=== PATIENT | female | born 1970 | race Caucasian/White ===

== ENCOUNTER 2017-01-17 08:28 | Day surgery (SDC) | payer BC ==
[2017-01-17] MEDS ORDERED: Midazolam 2 MG/2 ML VIAL ONE (10:20)
[2017-01-17] MEDS ORDERED: Propofol 10 mg/ml Inj (20 ML) ONE (10:20)
[2017-01-17] MEDS ORDERED: Lidocaine Hydrochloride 5 ML INJ ONE (10:23)
[2017-01-17] MEDS ORDERED: Doxycycline 100 mg Inj ONE (10:25)
--- NOTE | 2017-01-17 11:07 | PCM.SURG1 ---
Surgeon's Initial Post Op Note - Surgeon's Notes Surgeon: Dr. Shara Ortiz Mail Caller: none Type of Anesthesia: General LMA Pre-Operative Diagnosis: Fibroid uterus, possible endometrial polyps, irregular menses, pelvic pain Operative Findings: Enlarged uterus approximately 14 week sized, anteverted, adherent to anterior abdominal wall. No polyps visualized, small posterior wall submucosal fibroid. right ostia not visualized. Post-Operative Diagnosis: fibroid uterus Operation Performed: hysteroscopy, D&C with MyoSure Specimen/Specimens Removed: endometrial curettings, submucosal fibroid Estimated Blood Loss: EBL {In ML}: 5 Blood Products Given: N/A Drains Used: No Drains Post-Op Condition: Good Date of Surgery/Procedure: 01/17/17 Time of Surgery/Procedure: 10:45
--- NOTE | 2017-01-17 11:15 | CP.PCM.DIS ---
Provider - Provider Date of Admission: 01/17/17 Attending physician: Shara Ortiz Time Spent in preparation of Discharge (in minutes): 15 Hospital Course - Hospital Course Hospital Course: Patient underwent hysteroscopy D&C with myosure and tolerated the procedure well. She was discharged home in stable condition after ambulating, voiding, tolerating regular diet. - Date & Time of H&P Date of H&P: 01/17/17 Time of H&P: 09:50 Discharge Exam - GI/Abdominal Exam GI & Abdominal Exam: Unremarkable - Neurological Exam Neurological exam: Alert, Normal Gait, Oriented x3 - Psychiatric Exam Psychiatric exam: Normal Affect, Normal Mood Discharge Plan - Follow Up Plan Condition: GOOD Disposition: DISCHARGED TO HOME CARE
[2017-01-17] MEDS ORDERED: Lactated Ringer's 1,000 ML IV ONE (11:18)
[2017-01-17] MEDS ORDERED: HYDROmorphone 0.5 mg/0.5 ml ISec IVP PRN (11:20)
[2017-01-17] MEDS ORDERED: HYDROmorphone 0.5 mg/0.5 ml ISec ONE (11:28)
[2017-01-17 13:36] VITALS: RESP 16
[2017-01-17 14:05] VITALS: BP 120/62; PULSE 60; TEMP 97.1; O2SAT 100
--- NOTE | 2017-01-17 21:29 | OP ---
PROCEDURE DATE: 01/17/2017 PREOPERATIVE DIAGNOSES: Fibroid uterus, possible endometrial polyps, irregular menses, and pelvic pain. POSTOPERATIVE DIAGNOSIS: Enlarged fibroid uterus. INTRAOPERATIVE FINDINGS: Enlarged uterus approximately 14 weeks' size, anteverted, adherent to anterior abdominal wall, no polyp visualized, small posterior wall submucosal fibroid, right ostia could not be visualized due to scar tissue. PROCEDURE: Hysteroscopy, dilation and curettage with MyoSure. SPECIMENS REMOVED: Endometrial curettings and submucosal fibroid. ESTIMATED BLOOD LOSS: 5 mL. BLOOD PRODUCTS GIVEN: None. DRAINS: None. POSTOPERATIVE CONDITION: Stable. ADDITIONAL COMMENTS: All lap counts and instrument counts were correct x2. DESCRIPTION OF PROCEDURE: After all relevant documentation was reviewed and signed by MD, the patient was taken back to the OR. She was prepped and draped in the usual sterile fashion after being placed in lithotomy position. Bimanual examination revealed previously mentioned findings. A speculum was then used to visualize the cervix and the posterior lip of the cervix was then grasped with single-tooth tenaculum. The cervix was then serially dilated after being sounded to approximately 13 cm. Once the hysteroscope could be introduced, examination of the intrauterine cavity revealed small submucosal fibroid as well as blocked right ostia. With the use of the MyoSure, what appears to be the submucosal fibroid was then removed. The hysteroscope was then removed and a sharp curettage was then performed. The single-tooth tenaculum was then removed. Excellent hemostasis was noted. The patient was then awoken from general anesthesia and taken back to the recovery room in stable condition. Shara Ortiz MD
== END 2017-01-17 14:05 | disposition home health service (06) ==
LOC: C.SDS 08:28
PROVIDERS: ATTEND Obstetrics & Gynecology
DX: D25.0 Submucous leiomyoma of uterus (principal); N94.9 Unspecified condition associated with female genital organs and menstrual cycle
CPT/HCPCS: 58561; 88305; J1170; J2250; J2704; J3010; J7120